=== PATIENT | male | born 1975 | race Caucasian/White ===

== ENCOUNTER 2022-08-10 16:42 | Emergency (ER) | payer MEDICAID, SELFPAY ==
[2022-08-10] VITALS (20 sets, daily range): BP systolic 98–121; BP diastolic 62–84; PULSE 84–115; RESP 11–22; TEMP 37; O2SAT 98–100; BMI 28.5
--- NOTE | 2022-08-10 19:27 | CTR_ITS ---
PROCEDURE INFORMATION: Exam: CT Abdomen And Pelvis With Contrast Exam date and time: 08/10/2022 8:12 PM Age: 46 years old Clinical indication: Abdominal pain; Additional info: Meaghan-rectal pain, swelling. Abscess? TECHNIQUE: Imaging protocol: Computed tomography of the abdomen and pelvis with contrast. Radiation optimization: All CT scans at this facility use at least one of these dose optimization techniques: automated exposure control; mA and/or kV adjustment per patient size (includes targeted exams where dose is matched to clinical indication); or iterative reconstruction. Contrast material: OMNIPAQUE 350; Contrast volume: 100 ml; Contrast route: INTRAVENOUS (IV); COMPARISON: No relevant prior studies available. RADIATION DOSE METRICS: Total DLP (mGy-cm): 988.66 FINDINGS: Liver: Normal. No mass. Gallbladder and bile ducts: Normal. No calcified stones. No ductal dilation. Pancreas: Normal. No ductal dilation. Spleen: Normal. No splenomegaly. Adrenal glands: Normal. No mass. Kidneys and ureters: Normal. No hydronephrosis. Stomach and bowel: Constipation. Appendix: No evidence of appendicitis. Intraperitoneal space: Unremarkable. No free air. No significant fluid collection. Vasculature: Unremarkable. No abdominal aortic aneurysm. Lymph nodes: Unremarkable. No enlarged lymph nodes. Urinary bladder: Unremarkable as visualized. Reproductive: Unremarkable as visualized. Bones/joints: Unremarkable. No acute fracture. 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 CT/CT abdomen pelvis w con* [id number] IMPRESSION: 1. 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 2. Constipation.
--- NOTE | 2022-08-10 19:31 | W.ED.GENADLT ---
HPI - General Adult General: Chief complaint: General Medical Stated complaint: trouble with hemorrhoids Time Seen by Provider: 08/10/22 19:07 Source: patient History of Present Illness: 46-year-old male who states he is here for help with his hemorrhoids . He has had pain on and off for a couple of weeks. He was seen by his doctor, and given injections of Toradol and steroids, and placed on an antifungal he says. He states his pain is gotten worse, and involves his gluteal region now. He has been running fevers she says. Onset (ago): day(s) Location: buttocks Radiation: non-radiation Severity: severe Quality: burning and stabbing Pain Consistency: constant Relieving factors: none Associated symptoms: Reports fevers/chills and rash; Deny chest pain, confusion, cough, dyspnea, syncope or vomiting Treatments prior to arrival: other Review of Systems Const: Denies: fever(s), chills or body aches Eyes: Denies: change in vision Card: Denies: chest pain or syncope Resp: Denies: dyspnea GI: Denies: vomiting Skin/Breast: Reports: rash Neuro: Denies: confusion Physical Exam Const: GENERAL APPEARANCE: cooperative and ill appearing; not comfortable HENMT: COMMON NORMALS: normocephalic, atraumatic and Normal external nose present HEAD & SCALP: normocephalic and atraumatic NOSE: Normal external nose present Eye: COMMON NORMALS: Equal, round and reactive pupils present and EOMs intact bilaterally PUPIL: Yes Equal, round and reactive pupils present Chest: CHEST: Yes Symmetrical chest wall rise Resp: COMMON NORMALS: normal respiratory effort and No use of accessory muscles Cardio: COMMON NORMALS: regular rhythm RATE: tachycardic RHYTHM: regular rhythm Back/Pelvis: OTHER: Gluteal swelling with induration bilaterally. There is swelling of the base of the scrotum. There is tenderness in these areas. No drainage. Some surrounding cellulitis. Extremity: COMMON NORMALS: normal to inspection Neuro: RICARDO COMA SCALE: document GCS findings Ricardo coma scale eye opening: Spontaneous Ricardo coma scale verbal response: Orientated Ricardo coma scale motor response: Obey commands [place] coma scale total score: 15 Psych: COMMON NORMALS: mental status grossly normal and cooperative Skin: NARRATIVE SKIN EXAM: See above Course Vital Signs: Vital signs: Vital Signs Temperature 98.6 F 08/10/22 22:24 Pulse Rate 98 08/10/22 22:24 Respiratory Rate 18 08/10/22 22:24 Blood Pressure 118/84 08/10/22 22:24 Pulse Oximetry 99 08/10/22 22:24 Oxygen Delivery Me thod 08/10/22 16:48 MDM - General Adult Medical Decision Making Patient is afebrile here. His white count is 24. Other laboratory is pending. CT shows an irregular shaped fluid collection measuring up to at least 10 cm involving the perirectal region and perineum consistent with Shante's gangrene. We have no general surgeon on-call in this hospital this weekend. We have a call out to [facility] to see if they have a bed and a surgeon for this patient. In the meantime, he will get clindamycin, vancomycin, and Zosyn. Starting a second line. Starting a fluid bolus as well. Surgery has requested ER to ER transfer for this patient. Images sent through the cloud. We have no ground EMS services available at this time for several hours. Due to lack of resources, potential for clinical decompensation, and long transfer, he will go by air. Dr. Valentino in the ER at [facility] [place] has graciously accepted. His lactate is only 1.9 but CRP is significantly elevated. Lab Data 08/10/22 20:00 08/10/22 20:00 Radiology Impressions Abdomen/Pelvis CT 08/10/22 19:27 IMPRESSION: 1. 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 2. Constipation. Laboratory Results WBC 23.7 10^3/uL (4.0-10.0) H 08/10/22 20:00 RBC 5.38 10^6/uL (4.1-5.3) H 08/10/22 20:00 Hgb 14.5 g/dL (11.7-16.6) 08/10/22 20:00 Hct 44.0 % (42.0-52.0) 08/10/22 20:00 MCV 81.8 fl (80-94) 08/10/22 20:00 MCH 27.0 pg (28.0-34.0) L 08/10/22 20:00 MCHC 33.0 g/dL (30.0-36.0) 08/10/22 20:00 RDW 13.4 % (12.1-15.1) 08/10/22 20:00 Plt Count 435 10^3/cmm (130-400) H 08/10/22 20:00 MPV 8.8 fL (7.4-10.4) 08/10/22 20:00 Neut % (Auto) 89.7 % 08/10/22 20:00 Lymph % (Auto) 3.8 % 08/10/22 20:00 [place] % (Auto) 4.1 % 08/10/22 20:00 Eos % (Auto) 0.0 % 08/10/22 20:00 Baso % (Auto) 0.3 % 08/10/22 20:00 Neut # (Auto) 21.22 10^3/uL (1.8-7.7) H 08/10/22 20:00 Lymph # (Auto) 0.9 10^3/uL (0.8-4.8) 08/10/22 20:00 [place] # (Auto) 1.0 10^3/uL (0.2-0.9) H 08/10/22 20:00 Eos # (Auto) 0.0 10^3/uL (0.0-0.8) 08/10/22 20:00 Baso # (Auto) 0.1 10^3/uL (0.0-0.1) 08/10/22 20:00 Nucleated RBC % (auto) 0 % 08/10/22 20:00 Nucleated RBCs # 0.0 /100WBC 08/10/22 20:00 ESR 18 mm/hr (0-10) H 08/10/22 20:00 Sodium 130 mmol/L (136-145) L 08/10/22 20:00 Potassium 4.0 mmol/L (3.5-5.1) 08/10/22 20:00 Chloride 90 mmol/L (98-107) L 08/10/22 20:00 Carbon Dioxide 26 mmol/L (22-29) 08/10/22 20:00 Anion Gap 18.0 (5-19) 08/10/22 20:00 BUN 24 mg/dL (6-20) H 08/10/22 20:00 Creatinine 1.0 mg/dL (0.7-1.2) 08/10/22 20:00 GFR Calculation 79.8 mL/min (90-130) L 08/10/22 20:00 Glucose 134 mg/dL (65-115) H 08/10/22 20:00 Calculated Osmolality 276 mOsm/kg (285-295) L 08/10/22 20:00 Lactate 1.9 mmol/L (0.5-2.2) 08/10/22 20:00 Calcium 9.3 mg/dL (8.5-10.5) 08/10/22 20:00 Total Bilirubin 0.5 mg/dL (0.15-1.2) 08/10/22 20:00 AST 14 U/L (0-40) 08/10/22 20:00 ALT 10 U/L (0-41) 08/10/22 20:00 Alkaline Phosphatase 123 U/L (40-130) 08/10/22 20:00 C-Reactive Protein 229.5 mg/L (0.0-4.9) H 08/10/22 20:00 Total Protein 7.5 g/dL (6.6-8.7) 08/10/22 20:00 Albumin 3.1 g/dL (3.5-5.2) L 08/10/22 20:00 Globulin 4.4 g/dL (1.3-4.6) 08/10/22 20:00 Discharge Plan Discharge Patient Disposition: Transfer to ED Clinical Impression: Shante gangrene, Abscess, perirectal Condition: Serious Referrals: Harrell,WENDY Simental [Primary Care Provider] - Coding Level of Care Code ED Manager [employer] for Chg Fwd Exam Comprehensive
[2022-08-10] MEDS: iohexol 350 mg/mL 500 mL Btl (per mL) IV (20:14)
[2022-08-10 20:18] LABS: Basophils # 0.1 10^3/uL (0.0-0.1); Basophils % 0.3 %; Hemoglobin 14.5 g/dL (11.7-16.6); Lymphocytes # 0.9 10^3/uL (0.8-4.8); Lymphocytes % 3.8 %; Mean Corpuscular Volume 81.8 fl (80-94); Mean Platelet Volume 8.8 fL (7.4-10.4); Monocytes % 4.1 %; Neutrophils # 21.22 10^3/uL (1.8-7.7); Neutrophils % 89.7 %; Nucleated Red Blood Cells % 0 %; Platelet Count 435 10^3/cmm (130-400); Red Blood Count 5.38 10^6/uL (4.1-5.3); Red Cell Distribution Width 13.4 % (12.1-15.1); White Blood Count 23.7 10^3/uL (4.0-10.0)
[2022-08-10 20:20] LABS: Erythrocyte Sedimentation Rate 18 mm/hr (0-10)
[2022-08-10 20:46] LABS: Lactate (Lactic Acid level) 1.9 mmol/L (0.5-2.2)
[2022-08-10 20:47] LABS: Alanine Aminotransferase 10 U/L (0-41); Albumin Level 3.1 g/dL (3.5-5.2); Alkaline Phosphatase 123 U/L (40-130); Aspartate Amino Transferase 14 U/L (0-40); Blood Urea Nitrogen 24 mg/dL (6-20); C Reactive Protein 229.5 mg/L (0.0-4.9); Calcium 9.3 mg/dL (8.5-10.5); Carbon Dioxide 26 mmol/L (22-29); Chloride 90 mmol/L (98-107); Creatinine Clr Calc Pharmacy 108.1787; Globulin 4.4 g/dL (1.3-4.6); Glomerular Filtration Rate 79.8 mL/min (90-130); Glucose 134 mg/dL (65-115); Osmolality Calculated 276 mOsm/kg (285-295); Sodium 130 mmol/L (136-145); Total Bilirubin 0.5 mg/dL (0.15-1.2); Total Protein 7.5 g/dL (6.6-8.7)
[2022-08-10] MEDS: clindamycin 900 MG/50 ML PREMIX 100 MG IV (21:25)
[2022-08-10] MEDS: sodium chloride 0.9% 1,000 ML 999 ML IV (21:25)
== END 2022-08-11 ==
PROVIDERS: Emergency Provider Emergency Medicine; PCP Nurse Practitioner Family
DX: N49.3 Fournier gangrene (principal); K61.1 Rectal abscess
CPT/HCPCS: 36415; 74177; 80053; 83605; 85025; 85651; 86140; 96365; 99285; J3490; J7030; Q9967

== ENCOUNTER 2022-12-31 11:42 | Emergency (ER) | payer MEDICAID, SELFPAY ==
[2022-12-31] VITALS (12 sets, daily range): BP systolic 108–151; BP diastolic 71–92; PULSE 77–91; RESP 16–18; TEMP 36.9–37.1; O2SAT 95–100
[2022-12-31 14:40] LABS: Basophils # 0.1 10^3/uL (0.0-0.1); Basophils % 0.5 %; Eosinophils # 0.2 10^3/uL (0.0-0.8); Eosinophils % 1.3 %; Hematocrit 46.1 % (42.0-52.0); Hemoglobin 14.7 g/dL (11.7-16.6); Lymphocytes # 1.6 10^3/uL (0.8-4.8); Lymphocytes % 13.8 %; Mean Corpuscular HGB Conc 31.9 g/dL (30.0-36.0); Mean Corpuscular Hemoglobin 26.3 pg (28.0-34.0); Mean Corpuscular Volume 82.6 fl (80-94); Mean Platelet Volume 9.3 fL (7.4-10.4); Monocytes # 0.7 10^3/uL (0.2-0.9); Neutrophils # 9.19 10^3/uL (1.8-7.7); Neutrophils % 78.1 %; Nucleated Red Blood Cells % 0 %; Platelet Count 279 10^3/cmm (130-400); Red Blood Count 5.58 10^6/uL (4.1-5.3); Red Cell Distribution Width 13.2 % (12.1-15.1); White Blood Count 11.8 10^3/uL (4.0-10.0)
[2022-12-31 14:56] LABS: Alanine Aminotransferase 11 U/L (0-41); Albumin Level 3.9 g/dL (3.5-5.2); Alkaline Phosphatase 111 U/L (40-130); Anion Gap 16.8 (5-19); Aspartate Amino Transferase 11 U/L (0-40); Blood Urea Nitrogen 11 mg/dL (6-20); Calcium 9.2 mg/dL (8.5-10.5); Carbon Dioxide 23 mmol/L (22-29); Chloride 98 mmol/L (98-107); Globulin 3.6 g/dL (1.3-4.6); Glomerular Filtration Rate 89.7 mL/min (90-130); Glucose 97 mg/dL (65-115); Osmolality Calculated 277 mOsm/kg (285-295); Potassium 3.8 mmol/L (3.5-5.1); Sodium 134 mmol/L (136-145); Total Bilirubin 1.4 mg/dL (0.15-1.2); Total Protein 7.5 g/dL (6.6-8.7)
[2022-12-31 15:22] LABS: Lactic Sepsis W/Reflex 1.1 mmol/L (0.5-2.2)
--- NOTE | 2022-12-31 16:42 | CTR_ITS ---
PROCEDURE INFORMATION: Exam: CT Abdomen And Pelvis With Contrast Exam date and time: 12/31/2022 5:22 PM Age: 47 years old Clinical indication: Fever; Prior surgery; Surgery date: 1-6 months; Surgery type: Rectum, yue gangrene; Additional info: Fever chills, HX yue gangrene, currently packing wound TECHNIQUE: Imaging protocol: Computed tomography of the abdomen and pelvis with contrast. Axial, coronal and sagittal reformatted images were created and reviewed. Radiation optimization: All CT scans at this facility use at least one of these dose optimization techniques: automated exposure control; mA and/or kV adjustment per patient size (includes targeted exams where dose is matched to clinical indication); or iterative reconstruction. Contrast material: OMNI 350; Contrast volume: 100 ml; Contrast route: INTRAVENOUS (IV); REPORTING DATA: Count of CT and Cardiac NM exams in prior 12 months: This patient has received [address] and 0 known cardiac nuclear medicine studies in the 12 months prior to the current study. COMPARISON: CT abdomen pelvis w con* [id number] 08/10/2022 8:12 PM RADIATION DOSE METRICS: Total DLP (mGy-cm): 1000.63 FINDINGS: Lungs: Right lower lobe calcified granuloma. Liver: Coarse calcified hepatic granuloma. Gallbladder and bile ducts: No radiodense gallstones. No biliary ductal dilatation. Pancreas: Unremarkable. Spleen: Coarse calcified splenic granulomata. Mild splenomegaly. Adrenal glands: Normal. No mass. Kidneys and ureters: No mass. No radiodense calculi. No hydronephrosis. Stomach and bowel: No bowel wall thickening. No obstruction. No pneumatosis. Appendix: Normal. Intraperitoneal space: No free fluid. No organized fluid collection. No free air. Vasculature: Mild atherosclerotic disease. No aneurysm or dissection. Lymph nodes: Small mesenteric lymph nodes, nonspecific in appearance. No pathologically enlarged lymph nodes. Urinary bladder: Unremarkable as visualized. Reproductive: Unremarkable. Bones/joints: No acute osseous abnormality. Degenerative changes. Soft tissues: Small, fat containing left inguinal hernia. 4.8 x 1.5 x 4.8 cm loculated left perirectal air-fluid collection with associated skin thickening and adjacent postoperative change. CT/CT abdomen pelvis w con* [id number] IMPRESSION: 1. 4.8 x 1.5 x 4.8 cm loculated left perirectal abscess, as described above. 2. Additional findings, as above.
--- NOTE | 2022-12-31 16:44 | ED_ITS ---
HPI - Skin/Abscess/Foreign Bdy General: Chief complaint: Skin/Abscess/Foreign Body Stated complaint: abscess on bottom Time Seen by Provider: 12/31/22 16:36 History of Present Illness: Patient presents to the ER with complaints of fever chills and increased drainage. 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 Patient noticed over the last several days has had more fever and chills than normal as well as more drainage from his open buttocks wounds. Patient seeing wound care weekly and they probed the wound and repack it. MD complaint: other (Reevaluation of wound) Onset (ago): month(s) Location: buttocks Severity: moderate Relieving factors: none Exacerbating factors: none Associated symptoms: Reports chills and fever(s); Deny nausea or vomiting Treatments prior to arrival: other (Weekly visits with wound care for packing and probing.) Review of Systems General: Reports: 10 or more systems reviewed and unremarkable except in HPI and below Const: Reports: fever(s) and chills Eyes: Denies: change in vision ENMT: Denies: throat pain or odynophagia Card: Denies: chest pain, palpitations or irregular heart rhythm Resp: Denies: dyspnea, productive cough or non-productive cough GI: Denies: abdominal pain, nausea, vomiting or diarrhea : Denies: flank pain, difficulty urinating or dysuria Musc: Denies: neck pain or back pain Skin/Breast: Reports: surgical incision Neuro: Denies: headache(s) or numbness in extremities Psych: Denies: anxiety or depression Physical Exam Const: COMMON NORMALS: no acute distress, average body habitus, patient oriented x3, no limitations, healthy appearing, alert and well nourished HENMT: COMMON NORMALS: normocephalic, atraumatic, hearing grossly normal bilaterally, Normal external nose present and moist oral mucous membranes HEAD & SCALP: normocephalic and atraumatic NOSE: Normal external nose present Neck/C-Spine: COMMON NORMALS: full ROM, no lymphadenopathy, supple, no meningeal signs, no JVD and Thyroid normal THYROID: Thyroid normal Lymph: LYMPHATIC: no lymphadenopathy noted Chest: COMMONS NORMALS: normal inspection of the chest and normal palpation of entire chest wall Resp: COMMON NORMALS: normal respiratory effort, No retractions, No use of accessory muscles and clear to auscultation bilaterally AUSCULTATION: clear to auscultation bilaterally Cardio: COMMON NORMALS: no JVD, regular rate, regular rhythm, S1 normal heart sound present and S2 normal heart sound present RATE: regular rate RHYTHM: regular rhythm HEART SOUNDS: S1 normal heart sound present and S2 normal heart sound present GI: COMMON NORMALS: Normal to inspection, nondistended, normoactive bowel sounds present, Soft to palpation, non-tender, No hepatosplenomegaly present and no masses PALPATION: Yes Soft to palpation and Yes No hepatosplenomegaly present Back/Pelvis: OTHER: Patient has bilateral surgical incisions on inside buttocks regions. right incision looks healed no erythema no tenderness to palpation no drainage. Left incision mostly healed up but does have a dehiscence with packing and drainage noted in it. There is minimal erythema and minimal tenderness to palpation around the incision and opening. Neuro: COMMON NORMALS: patient oriented x3 SENSORIUM/ORIENTATION: Yes alert MENINGEAL SIGNS: Yes no meningeal signs Course Vital Signs: Vital signs: Vital Signs Temperature 98.8 F 12/31/22 15:30 Pulse Rate 83 12/31/22 19:00 Respiratory Rate 18 12/31/22 19:00 Blood Pressure 151/92 12/31/22 19:30 Pulse Oximetry 98 12/31/22 19:30 Oxygen Delivery Me thod 12/31/22 17:10 MDM - Skin/Abscess/Foreign Bdy Medicial Decision Making Patient presents to the ER with complaints of intermittent fever and chills and not feeling well. Patient was seen in the past for Shante's gangrene with abscess. Patient is currently seeing the wound care consistently for repacking of his tunneling wound in his left buttock region. Patient states the wound care doc probed the area vigorously on Saturday and patient has had intermittent fever and chills since then. Wound is currently packed and draining a serosanguineous mucus-like discharge no trisha odor is noted and discharge is not purulent in nature. Wound is not erythematous not indurated and not overly tender to palpate. Lab work was obtained which showed a white count of 11.8, lactic acid of 1.1, metabolic panel was benign, a CT scan of his abdomen pelvis with contrast was obtained which showed a 4.8 x 1.5 x 4.8 cm loculated left perirectal abscess with associated skin thickening and adjacent postop change. Patient is not currently on antibiotics. Patient was informed of these findings as well as the options of potentially being transferred back to [place] to the original surgeon, admission here to be seen by one of our surgeons, or discharge on antibiotics to follow-up with the wound care as already scheduled tomorrow. We try to get a hold with Dr. Kellogg on several occasions at the end of the day shift in the beginning of the shift boss with no success. Patient stated he did not necessarily want to go back to [place] last absolutely necessary. I feel that admission here to try to see one of our surgeons will be uneventful since he had surgery somewhere else. Patient appears stable and not overly symptomatic in his nature and already has an appointment with wound care tomorrow. Patient agreed to being placed on oral antibiotics as we will give him a dose tonight and a prescription to go home on and he can follow-up with wound care as previously arranged tomorrow. Patient was informed that this abscess would eventually need to be opened up and if this cannot be accomplished by probing the cavity tomorrow at wound care he may end up having to go back to [place] anyways and he is okay with this. Differential Diagnosis Likely abscess of skin or subcutaneous tissue; Unlikely viral exanthem, dermatophytosis, urticaria or herpes zoster Medical Records I reviewed the patient's medical records. Lab Data I reviewed the patient's lab results. 12/31/22 14:20 12/31/22 14:20 Radiology Impressions Abdomen/Pelvis CT 12/31/22 16:42 IMPRESSION: 1. 4.8 x 1.5 x 4.8 cm loculated left perirectal abscess, as described above. 2. Additional findings, as above. Laboratory Results WBC 11.8 10^3/uL (4.0-10.0) H 12/31/22 14:20 RBC 5.58 10^6/uL (4.1-5.3) H 12/31/22 14:20 Hgb 14.7 g/dL (11.7-16.6) 12/31/22 14:20 Hct 46.1 % (42.0-52.0) 12/31/22 14:20 MCV 82.6 fl (80-94) 12/31/22 14:20 MCH 26.3 pg (28.0-34.0) L 12/31/22 14:20 MCHC 31.9 g/dL (30.0-36.0) 12/31/22 14:20 RDW 13.2 % (12.1-15.1) 12/31/22 14:20 Plt Count 279 10^3/cmm (130-400) 12/31/22 14:20 MPV 9.3 fL (7.4-10.4) 12/31/22 14:20 Neut % (Auto) 78.1 % 12/31/22 14:20 Lymph % (Auto) 13.8 % 12/31/22 14:20 [place] % (Auto) 6.0 % 12/31/22 14:20 Eos % (Auto) 1.3 % 12/31/22 14:20 Baso % (Auto) 0.5 % 12/31/22 14:20 Neut # (Auto) 9.19 10^3/uL (1.8-7.7) H 12/31/22 14:20 Lymph # (Auto) 1.6 10^3/uL (0.8-4.8) 12/31/22 14:20 [place] # (Auto) 0.7 10^3/uL (0.2-0.9) 12/31/22 14:20 Eos # (Auto) 0.2 10^3/uL (0.0-0.8) 12/31/22 14:20 Baso # (Auto) 0.1 10^3/uL (0.0-0.1) 12/31/22 14:20 Nucleated RBC % (auto) 0 % 12/31/22 14:20 Nucleated RBCs # 0.0 /100WBC 12/31/22 14:20 Sodium 134 mmol/L (136-145) L 12/31/22 14:20 Potassium 3.8 mmol/L (3.5-5.1) 12/31/22 14:20 Chloride 98 mmol/L (98-107) 12/31/22 14:20 Carbon Dioxide 23 mmol/L (22-29) 12/31/22 14:20 Anion Gap 16.8 (5-19) 12/31/22 14:20 BUN 11 mg/dL (6-20) 12/31/22 14:20 Creatinine 0.9 mg/dL (0.7-1.2) 12/31/22 14:20 GFR Calculation 89.7 mL/min (90-130) L 12/31/22 14:20 Glucose 97 mg/dL (65-115) 12/31/22 14:20 Calculated Osmolality 277 mOsm/kg (285-295) L 12/31/22 14:20 Lactic Acid 1.1 mmol/L (0.5-2.2) 12/31/22 14:20 Calcium 9.2 mg/dL (8.5-10.5) 12/31/22 14:20 Total Bilirubin 1.4 mg/dL (0.15-1.2) H 12/31/22 14:20 AST 11 U/L (0-40) 12/31/22 14:20 ALT 11 U/L (0-41) 12/31/22 14:20 Alkaline Phosphatase 111 U/L (40-130) 12/31/22 14:20 Total Protein 7.5 g/dL (6.6-8.7) 12/31/22 14:20 Albumin 3.9 g/dL (3.5-5.2) 12/31/22 14:20 Globulin 3.6 g/dL (1.3-4.6) 12/31/22 14:20 Discharge Plan Discharge Patient Disposition: Home Clinical Impression: Abscess, perirectal Condition: Stable Prescriptions: New Bactrim DS 800-160 mg tablet 1 tab PO BID 14 Days Qty: 28 0RF No Action hydrocortisone acetate 1 % ointment topical tramadol 50 mg tablet 50 mg PO Q4H PRN metronidazole 500 mg tablet 500 mg PO TID Dakin's Solution 0.125 % solution 1 applic topical BID Qty: 473 3RF Discharge Orders: Discharge ED (Routine); Ordered 12/31/22 Ordered By: Josias Jones Referrals: Julio Cesar,WENDY Simental [Primary Care Provider] - 1 week Patient Instructions: Anorectal Abscess Activity Restrictions/Additional Instructions: Please keep your appointment with wound care tomorrow as previously arranged. Please take all antibiotic as directed. Coding Level of Care Code ED Life [employer] for Shivam Perea
[2022-12-31] MEDS: iohexol 350 mg/mL 500 mL Btl (per mL) IV (17:39)
[2022-12-31] MEDS: sulfamethoxazole-trimeth DS 160-800 mg Tablet 1 TAB PO (20:09)
== END 2022-12-31 20:23 | disposition home or self-care (01) ==
PROVIDERS: Physician Assistant; Emergency Provider Emergency Medicine; PCP Nurse Practitioner Family
DX: K61.1 Rectal abscess (principal)
CPT/HCPCS: 36415; 74177; 80053; 83605; 85025; 87040; 87070; 87077; 87186; 99285; Q9967

== ENCOUNTER → 2023-02-01 08:36 | Outpatient (BNVA) | payer MEDICAID, SELFPAY | PROVIDERS: PCP Nurse Practitioner Family; Visit Provider Thoracic Surgery (Cardiothoracic Vascular Surgery) | DX: L02.215 Cutaneous abscess of perineum (principal); L02.31 Cutaneous abscess of buttock | CPT/HCPCS: 87070; 87176; 87186; 87205 ==

== ENCOUNTER 2023-02-12 16:28 | Outpatient (CLI) | payer MEDICAID, SELFPAY ==
[2023-02-12] MEDS: iohexol 350 mg/mL 500 mL Btl (per mL) IV (16:54)
--- NOTE | 2023-02-12 17:00 | CTR_ITS ---
PROCEDURE INFORMATION: Exam: CT Abdomen And Pelvis With Contrast Exam date and time: 02/12/2023 4:49 PM Age: 47 years old Clinical indication: Condition or disease; Intestinal condition; Abscess; Prior surgery; Surgery date: 1-6 months; Surgery type: Rectal; Additional info: Meaghan-rectal abscess (repeat requested by outside surgeon) TECHNIQUE: Imaging protocol: Computed tomography of the abdomen and pelvis with contrast. Radiation optimization: All CT scans at this facility use at least one of these dose optimization techniques: automated exposure control; mA and/or kV adjustment per patient size (includes targeted exams where dose is matched to clinical indication); or iterative reconstruction. Contrast material: OMNI 350; Contrast volume: 95 ml; Contrast route: INTRAVENOUS (IV); REPORTING DATA: Count of CT and Cardiac NM exams in prior 12 months: This patient has received 2 known CTs and 0 known cardiac nuclear medicine studies in the 12 months prior to the current study. COMPARISON: CT abdomen pelvis w con* [id number] 12/31/2022 5:22 PM RADIATION DOSE METRICS: Total DLP (mGy-cm): 750.23 FINDINGS: Liver: Normal. No mass. Gallbladder and bile ducts: Normal. No calcified stones. No ductal dilation. Pancreas: Normal. No ductal dilation. Spleen: Splenic granulomas are present. Small accessory spleen. Adrenal glands: Normal. No mass. Kidneys and ureters: Normal. No hydronephrosis. Stomach and bowel: Unremarkable. No obstruction. No mucosal thickening. Appendix: Appendix normal. Intraperitoneal space: No acute intra-abdominal process. No inflammatory process. No obstruction. No free fluid within the pelvis or within the dependent portions of the peritoneum. Vasculature: Flow within the superior mesenteric artery, celiac trunk and inferior mesenteric arteries. Lymph nodes: Unremarkable. No enlarged lymph nodes. Urinary bladder: Unremarkable as visualized. Reproductive: Unremarkable as visualized. Bones/joints: Unremarkable. No acute fracture. Soft tissues: Inflammatory changes within the perirectal soft tissues on the left measuring approximately 3.6 cm in the anterior-posterior dimension and 1.5 cm transversely. Only partially within the field of view. See image number 108 series 3. On the sagittal reconstructed images there appears to be a small amount of fluid with a small amount of air measuring approximately 2 cm. This is adjacent to the ischial rectal fossa. See the axial images number 96 series 3. Thickening of the pelvic sling musculature. CT/CT abdomen pelvis w con* [id number] IMPRESSION: 1. Inflammatory changes within the perirectal soft tissues on the left measuring approximately 3.6 cm in the anterior-posterior dimension and 1.5 cm transversely. Only partially within the field of view. See image number 108 series 3. 2. On the sagittal reconstructed images there appears to be a small amount of fluid with a small amount of air measuring approximately 2 cm. This is adjacent to the ischial rectal fossa. See the axial images number 96 series 3. Thickening of the pelvic sling musculature. This adjacent to the prostate gland and the rectum. 3. No acute intra-abdominal process. No inflammatory process. No obstruction. 4. No free fluid within the pelvis or within the dependent portions of the peritoneum. 5. Appendix normal.
== END 2023-02-12 16:29 | disposition home or self-care (01) ==
LOC: RAD 16:32
PROVIDERS: PCP Nurse Practitioner Family; Visit Provider Thoracic Surgery (Cardiothoracic Vascular Surgery)
DX: Z09 Encounter for follow-up examination after completed treatment for conditions other than malignant neoplasm (principal)
CPT/HCPCS: 74177; Q9967

== ENCOUNTER 2024-03-03 13:12 | Emergency (ER) | payer SELFPAY ==
[2024-03-03 13:22] VITALS: BP 136/90; PULSE 82; RESP 14; TEMP 36.6; O2SAT 98
--- NOTE | 2024-03-03 13:50 | ED_ITS ---
HPI - Skin/Abscess/Foreign Bdy General: Chief complaint: Skin/Abscess/Foreign Body Stated complaint: right rear side swollen Time Seen by Provider: 03/03/24 13:33 Source: patient Mode of arrival: ambulatory Limitations: no limitations History of Present Illness: Patient is a nice 48-year-old male presents to ED today with a complaint of swelling near his right buttock that he has noticed over the past 6 weeks or so. Patient states he has an extensive past medical history including a yue's gangrene, recurrent buttock abscesses requiring wound care, and fistula formation. Last surgery of any kind was over 6 months ago. Patient states his surgeon is in [facility] but has not seen them in months as everything had healed well and he had not been having any issues. Has not noticed any drainage or odor. He is reporting normal, nonpainful bowel movements. He is not running fevers. He states area has not seemed to enlarge or change much over the past 6 weeks. He states he only has some mild discomfort when he sits down MD complaint: abscess/boil Onset (ago): week(s) Tetanus up to date: yes Location: buttocks Severity: mild Pain Consistency: intermittent Exacerbating factors: other (sitting) Context: other (previous gangrene/abscess/fistula) Associated symptoms: Deny chills, fever(s), nausea or vomiting Treatments prior to arrival: none Review of Systems Const: Denies: fever(s), chills or body aches GI: Denies: abdominal pain, nausea, vomiting, change in bowel habits, rectal pain, rectal itching, change in stool character, hematochezia or mucus in stool : Denies: flank pain, dysuria, hematuria, testicular pain or scrotal swelling Musc: Denies: neck pain, back pain, extremity pain or joint pain Neuro: Denies: headache(s), numbness in extremities, weakness in extremities, sensory changes, difficulty walking or dizziness Physical Exam Const: COMMON NORMALS: no acute distress, average body habitus, no limitations, healthy appearing, alert and well nourished Resp: COMMON NORMALS: normal respiratory effort and clear to auscultation bilaterally AUSCULTATION: clear to auscultation bilaterally Cardio: COMMON NORMALS: regular rate and regular rhythm RATE: regular rate RHYTHM: regular rhythm GI: COMMON NORMALS: Normal to inspection, nondistended, normoactive bowel sounds present, Soft to palpation, non-tender, No hepatosplenomegaly present and no masses PALPATION: Yes Soft to palpation and Yes No hepatosplenomegaly present RECTAL EXAM: No hemorrhoids and No Anal fissure(s) present OTHER: large L and R perirectal surgical incisions that are fully healed and appear well; he has an area measuring 6cm x 2.5cm to R buttock/gluteal cleft that is slightly erythematous with hard overlying slough; there is no induration but appears to be quite fluctuant; no drainage easily expressed; area is not overly tender Extremity: GENERAL: Yes normal exam except as noted Neuro: COMMON NORMALS: moves all extremities, no focal motor deficits, no sen dwayne deficits noted and gait normal SENSORIUM/ORIENTATION: Yes alert Skin: NARRATIVE SKIN EXAM: see above Procedures Abscess I/D Site: other (R buttock abscess ) Side (if applicable): right Local Anesthetic: lidocaine 2% Amount of anesthesia used (mL): 4.0 Technique: incised with #11 blade Amount of fluid expressed (mL): 10 Packing used?: plain Course Vital Signs: Vital signs: Vital Signs Temperature 97.9 F 03/03/24 13:22 Pulse Rate 82 03/03/24 13:22 Respiratory Rate 14 03/03/24 13:22 Blood Pressure 136/90 03/03/24 13:22 Pulse Oximetry 98 03/03/24 13:22 Oxygen Delivery Me thod Room Air 03/03/24 13:22 MDM - Skin/Abscess/Foreign Bdy Medicial Decision Making Patient here with a large area to the right buttock that is fluctuant. Overlying erythema present. He is not having any systemic symptoms. Ultrasound initially obtained and spoke to pest control chemical technician which stated there is a large 6 to 7 cm cavity with complex material present assuming abscess. Decision was made for drainage. Material expressed was mainly bloody components with almost no purulent or odorous material. Large cavity present. Will go ahead and pack and see if we can't get this to heal from the bottom up. Culture still obtained. Will go ahead and cover with antibiotics although clinically I have a low suspicion this is infectious. Especially given his lack of systemic complaints. I would like him to follow-up with his surgeon as soon as possible. If he cannot see them, I will have case management try to set him up with general surgery. I spoke to Dr. Grimm in regards to ultrasound findings and he too was suspicious this could be an abscess. I told him of I&D findings and he will amend report to include possible hematoma. Medical Records I reviewed the patient's medical records. Lab Data Radiology Impressions Soft Tissue Ultrasound 03/03/24 13:50 IMPRESSION: Discussed above Discussed with KEITH Hunter at 03/03/2024 2:55 PM. All radiology interpretation(s) finalized by discharge Discharge Plan Discharge Patient Disposition: Home Clinical Impression: Hematoma of right buttock Condition: Stable Prescriptions: New amoxicillin-pot clavulanate 875-125 mg tablet 1 tab PO BID Qty: 14 0RF No Action levofloxacin 500 mg tablet 500 mg PO DAILY Qty: 10 0RF metronidazole 500 mg tablet 500 mg PO BID 10 Days Qty: 20 0RF hydrocortisone acetate 1 % ointment topical tramadol 50 mg tablet 50 mg PO Q4H PRN metronidazole 500 mg tablet 500 mg PO TID levofloxacin 500 mg tablet 500 mg PO DAILY Qty: 10 0RF Dakin's Solution 0.125 % solution 1 applic topical BID Qty: 473 3RF amoxicillin 500 mg tablet 500 mg PO BID 10 Days Qty: 20 0RF Discharge Orders: Discharge ED (Routine); Ordered 03/03/24 Ordered By: Ivy Miranda Referrals: Kamille Harrell APN [Primary Care Provider] - Activity Restrictions/Additional Instructions: As we discussed I would like you to follow up with your surgeon. If you cannot get in to see them in the next 1-2 weeks then I will have case management attempt to get you seen here by general surgery. Keep wound clean by doing sitz baths. Avoid removing your packing until you are seen by specialist. Coding Level of Care Code ED [place] for Shivam Perea
--- NOTE | 2024-03-03 13:50 | US_ITS ---
WS: [id number] INDICATION: RIGHT buttock abscess TECHNIQUE: Ultrasound RIGHT buttock area of concern FINDINGS: Ultrasound RIGHT buttock area of concern. In the area of concern there is a heterogeneous c ollection measuring 5.9 x 4.7 x 2.7 cm suspicious for chronic hematoma versus abscess. No other suspi cious findings. US/US soft tissue/extremity [id number] IMPRESSION: Discussed above Discussed with KEITH Hunter at 03/03/2024 2:55 PM.
[2024-03-03 15:00] VITALS: BP 138/84; PULSE 77; O2SAT 95
--- NOTE | 2024-03-03 16:21 | DCPLANNER ---
Message sent to General surgery for a follow up appointment - R buttocks Abscess.
== END 2024-03-03 15:14 | disposition home or self-care (01) ==
PROVIDERS: Emergency Provider Physician Assistant; PCP Nurse Practitioner Family
DX: S30.0XXA Contusion of lower back and pelvis, initial encounter (principal); X58.XXXA Exposure to other specified factors, initial encounter
CPT/HCPCS: 10060; 76882; 87070; 87075; 87077; 87186; 87205; 99284